=== PATIENT | female | born 1975 | race Caucasian/White ===

== ENCOUNTER 2016-07-14 16:11 | Emergency (ER) | payer OTHER ==
[~2016-07-14] VITALS: Ht 162.6 cm; Wt 84.8 kg
[~2016-07-14 16:11] MED LIST: ARMOUR THYROID PO; CHOL500052 PO; CYM30 PO; PREG75CA PO; PRO40 PO; TOP25 PO
[2016-07-14 16:15] VITALS: BP 129/75; PULSE 68; RESP 19; TEMP 97.3; O2SAT 98
--- NOTE | 2016-07-14 16:15 | NUR ---
Patient triaged and placed in waiting room. VSS and patient appears in no acute distress at this time. Accompanied by SELF , awaiting available bed, and MD notified of need for MSE.
--- NOTE | 2016-07-14 17:26 | NUR ---
BROUGHT BACK TO [facility], REPORT GIVEN TO GIAN
--- NOTE | 2016-07-14 17:26 | NUR ---
Pt report received from GRACIELA Isabel. Pt c/o H/A, photophobia, and nausea intermittently x 1 week, worse today. Pt denies LOC, denies C/P or SOB. Pain at 8/10.
[2016-07-14] MEDS ORDERED: DIPHENHYDRAMINE INJ 50 MG/ML VIAL IVP ONE (17:30)
[2016-07-14] MEDS ORDERED: METOCLOPRAMIDE HCL 10 MG/2 ML VIAL IVP ONE (17:30)
[2016-07-14 17:40] LABS: HEMOGLOBIN 11.4 g/dL (12.0-16.0)
[2016-07-14 17:55] LABS: ALBUMIN 3.6 g/dL (3.4-4.8); BASOPHILS # (AUTO) 0.1 K/uL (0.0-0.2); CALCIUM 9.1 mg/dL (8.4-11.0); CREATININE 1.26 mg/dL (0.55-1.30); EOSINOPHILS # (AUTO) 0.2 K/uL (0.0-0.4); EOSINOPHILS % (AUTO) 1.8 % (0.0-4.0); HEMATOCRIT 33.5 % (36-48); LYMPHOCYTES # (AUTO) 3.5 K/uL (1.0-5.5); LYMPHOCYTES % (AUTO) 32.1 % (20.5-51.5); MEAN CORPUSCULAR HEMOGLOBIN 28 pg (27-31); MEAN CORPUSCULAR HGB CONC 34 % (32-36); MEAN CORPUSCULAR VOLUME 83 fL (79.0-98.0); MONOCYTES # (AUTO) 0.8 K/uL (0.0-1.0); MONOCYTES % (AUTO) 7.7 % (1.7-9.3); NEUTROPHILS # (AUTO) 6.3 K/uL (1.8-7.7); NEUTROPHILS % (AUTO) 57.4 % (40.0-70.0); PLATELET COUNT (AUTO) 213 K/uL (130-430); POTASSIUM 3.6 mmol/L (3.5-5.1); RED BLOOD CELL COUNT(AUTO) 4.02 MIL/uL (4.2-6.2); TOTAL BILIRUBIN 0.2 mg/dL (0.0-1.0); TOTAL PROTEIN, SERUM 7.6 g/dL (6.4-8.3); WHITE BLOOD COUNT (AUTO) 10.9 K/uL (4.8-10.8)
--- NOTE | 2016-07-14 18:30 | NUR ---
Pt resting quietly, even and non-labored respirations. Lights off for pt comfort.
--- NOTE | 2016-07-14 19:07 | NUR ---
Pt report given to GRACIELA Walsh.
--- NOTE | 2016-07-14 19:10 | NUR ---
at bedside evaluating pt
--- NOTE | 2016-07-14 19:17 | NUR ---
pt in bed, stated headache is tolerable at 4/10. No other distress noted
[2016-07-14 19:35] VITALS: BP 124/71; PULSE 66; RESP 18; TEMP 97.3; O2SAT 98
--- NOTE | 2016-07-14 19:35 | NUR ---
Patient given written and verbal discharge instructions and verbalizes understanding. ER MD Barba discussed with patient the results and treatment provided. Patient in stable condition. ID arm band removed. Rx of motrin and norco given. Patient educated on pain management and to follow up with PMD. Pain Scale 0/10 Opportunity for questions provided and answered.
== END 2016-07-14 19:35 | disposition home or self-care (01) ==
LOC: SED 16:11
DX: R51 Headache (principal); H53.149 Visual discomfort, unspecified; E03.9 Hypothyroidism, unspecified
CPT/HCPCS: 36415; 80053; 81025; 85025; 96372; 99284; J1200; J2765

== ENCOUNTER 2018-01-04 00:06 | Emergency (ER) | payer OTHER ==
[~2018-01-04] VITALS: Ht 162.6 cm; Wt 82.6 kg
[2018-01-04 00:18] VITALS: BP_SYST 137
--- NOTE | 2018-01-04 00:48 | NUR ---
Placed in room 02. Placed on monitoring analyst, blood pressure machine and pulse oximeter. To gown for exam. Side rails up. Report given to GRACIELA Peck.
--- NOTE | 2018-01-04 00:50 | NUR ---
Patient AAOx4, ambulatory. Patient states having a main complaint of chronic migraines, with her last episode occurring "a while ago". Patient states having an onset of migraines for 1 day with no relief of headache. Patient states current pain scale of 7/10 at this time with a sharp sensation. Patient states having eye sensitivity to light. Patient denies any vomiting. Patient denies any other complaints.
[2018-01-04] MEDS ORDERED: KETOROLAC TROMETHAMINE 30 MG VIAL IVP ONE (02:00)
[2018-01-04] MEDS ORDERED: DIPHENHYDRAMINE INJ 50 MG/ML VIAL IVP ONE (02:00)
[2018-01-04] MEDS ORDERED: DEXAMETHASONE SOD PHOSPHATE 10 MG/ML VIAL IVP ONE (02:00)
[2018-01-04] MEDS ORDERED: METOCLOPRAMIDE HCL 10 MG/2 ML VIAL IVP ONE (02:00)
--- NOTE | 2018-01-04 02:00 | NUR ---
ER Dr. Carter at bedside examining patient.
--- NOTE | 2018-01-04 02:10 | NUR ---
# 20 gauge angiocath placed to left AC. Use of asceptic technique. Opsite placed over site. Blood return noted. Blood for lab drawn from site. Flushed with 10 cc of normal saline. No evidence of infiltration noted. Patient tolerated well.
[2018-01-04 02:41] LABS: BASOPHILS # (AUTO) 0.2 K/uL (0.0-0.2); BASOPHILS % (AUTO) 1.6 % (0.0-2.0); EOSINOPHILS # (AUTO) 0.2 K/uL (0.0-0.4); EOSINOPHILS % (AUTO) 1.6 % (0.0-4.0); HEMOGLOBIN 14.9 g/dL (12.0-16.0); LYMPHOCYTES # (AUTO) 2.8 K/uL (1.0-5.5); LYMPHOCYTES % (AUTO) 22.7 % (20.5-51.5); MEAN CORPUSCULAR HEMOGLOBIN 32 pg (27-31); MEAN CORPUSCULAR HGB CONC 34 % (32-36); MEAN CORPUSCULAR VOLUME 93 fL (79.0-98.0); MONOCYTES # (AUTO) 0.9 K/uL (0.0-1.0); NEUTROPHILS # (AUTO) 8.2 K/uL (1.8-7.7); NEUTROPHILS % (AUTO) 67.1 % (40.0-70.0); PLATELET COUNT (AUTO) 260 K/uL (130-430); RED BLOOD CELL COUNT(AUTO) 4.72 MIL/uL (4.2-6.2); RED CELL DISTRIBUTION WIDTH 13.3 % (9.0-15.0); WHITE BLOOD COUNT (AUTO) 12.3 K/uL (4.8-10.8)
[2018-01-04 02:42] LABS: BILIRUBIN,URINE NEGATIVE (NEGATIVE); BLOOD, URINE NEGATIVE (NEGATIVE); CLARITY/URINE CLEAR (CLEAR); COLOR,URINE YELLOW (YELLOW); GLUCOSE,URINE NEGATIVE (NEGATIVE); KETONES,URINE NEGATIVE (NEGATIVE); LEUKOCYTE ESTERASE ,URINE NEGATIVE (NEGATIVE); NITRITE, URINE NEGATIVE (NEGATIVE); PH,URINE 5.5 (5.0-8.0); PROTEIN URINE NEGATIVE (NEGATIVE); UROBILINOGEN,URINE 0.2 (0.2-1.0)
--- NOTE | 2018-01-04 02:48 | NUR ---
Patient is calmly resting in ER bed, no signs of distress noted. Vital signs are within therapeutic range.
[2018-01-04 02:55] LABS: CALCIUM 9.6 mg/dL (8.4-11.0); CREATININE 0.91 mg/dL (0.55-1.30); POTASSIUM 3.6 mmol/L (3.5-5.1)
--- NOTE | 2018-01-04 03:33 | NUR ---
Note marilyn in ED - 01/04/18 at 0408 by GRETTA Patient has a 1 cm laceration to right ankle. Dr. Carter applied sutures using sterile technique. Edges well approximated. Site cleansed with betadine and sterile normal saline. Dressing of dry gauze with bacitracin applied to site. No bleeding noted. Pt tolerated well.
[2018-01-04 03:47] LABS: ERYTHROCYTE SEDIMENTATION RATE 12 MM/HR (0-20)
[2018-01-04 03:50] VITALS: BP_SYST 132
--- NOTE | 2018-01-04 03:50 | NUR ---
Patient given written and verbal discharge instructions and verbalizes understanding. ER MD discussed with patient the results and treatment provided. Patient in stable condition. ID arm band removed. IV catheter removed intact and dressing applied, no active bleeding. Rx of reglan given. Patient educated on pain management and to follow up with PMD. Pain Scale 0/10. Opportunity for questions provided and answered.
== END 2018-01-04 03:50 | disposition home or self-care (01) ==
LOC: SED 00:06
DX: G43.909 Migraine, unspecified, not intractable, without status migrainosus (principal); M79.7 Fibromyalgia; E03.9 Hypothyroidism, unspecified; Z79.899 Other long term (current) drug therapy
CPT/HCPCS: 36415; 80048; 81003; 85025; 85651; 96374; 96375; 99284; J1100; J1200; J1885; J2765

== ENCOUNTER 2018-12-01 19:15 | Emergency (ER) | payer OTHER ==
[~2018-12-01] VITALS: Ht 162.6 cm; Wt 81.6 kg
[2018-12-01 19:21] VITALS: BP_SYST 117
--- NOTE | 2018-12-01 20:15 | NUR ---
Patient to ER bed 8 for evaluation.
--- NOTE | 2018-12-01 20:15 | NUR ---
Patient to ER via triage for evaluation of left great toe pain x 3 days, very slight redness noted to side of nail bed, no swelling or drainage noted. Patient denies any known trauma or injury. Patient is awake, alert and oriented in no acute distress, vital signs stable, respirations even and unlabored, skin warm and dry to touch. Patient able to ambulate without difficulty with slow, steady gait to bed 8. Patient in position of comfort. Awaiting evaluation by ER MD, will continue to observe and assess.
--- NOTE | 2018-12-01 20:40 | NUR ---
ER at bedside examining patient.
[2018-12-01] MEDS ORDERED: LIDOCAINE 1% 10 MG/ML, 20 ML MDV INJ ONE (20:45)
[2018-12-01] MEDS ORDERED: KETOROLAC TROMETHAMINE 60 MG/2 ML VIAL IM ONE (20:45)
[2018-12-01] MEDS ORDERED: MORPHINE 4 MG/ML INJ. SYRINGE IM ONE (21:15)
--- NOTE | 2018-12-01 21:30 | NUR ---
Dr Lynn at bedside for partial removal of toe nail. No adverse reaction noted to medication.
[2018-12-01 22:14] VITALS: BP_SYST 116
--- NOTE | 2018-12-01 22:16 | NUR ---
Patient given written and verbal discharge instructions and verbalizes understanding. ER MD discussed with patient the results and treatment provided. Patient in stable condition. ID arm band removed. Rx of Tillman and Keflex given. Patient educated on pain management and to follow up with PMD. Pain Scale 2/10 tolerable for patient. Opportunity for questions provided and answered. Medication side effect fact sheet provided.
== END 2018-12-01 20:15 | disposition home or self-care (01) ==
LOC: SED 19:15
DX: L60.0 Ingrowing nail (principal); L03.032 Cellulitis of left toe; G43.909 Migraine, unspecified, not intractable, without status migrainosus; M79.7 Fibromyalgia; E03.9 Hypothyroidism, unspecified; Z79.899 Other long term (current) drug therapy
CPT/HCPCS: 11730; 96372; 99283; J1885; J2001; J2270

== ENCOUNTER 2018-12-03 14:57 | Emergency (ER) | payer OTHER ==
[~2018-12-03] VITALS: Ht 162.6 cm; Wt 81.6 kg
[2018-12-03 15:18] VITALS: BP_SYST 125
[2018-12-03] MEDS ORDERED: HYDROcodone/ACETAMIN 5-325 MG TAB (NORCO/ VICODIN) PO ONE (15:45)
[2018-12-03 16:43] VITALS: BP_SYST 125
== END 2018-12-03 16:43 | disposition home or self-care (01) ==
LOC: SED 14:57
DX: L60.0 Ingrowing nail (principal); R03.0 Elevated blood-pressure reading, without diagnosis of hypertension; E03.9 Hypothyroidism, unspecified; G43.909 Migraine, unspecified, not intractable, without status migrainosus; M79.7 Fibromyalgia; Z79.899 Other long term (current) drug therapy
CPT/HCPCS: 99281

== ENCOUNTER 2019-01-10 00:23 | Emergency (ER) | payer OTHER ==
[~2019-01-10] VITALS: Ht 162.6 cm; Wt 83.9 kg
[2019-01-10 01:06] VITALS: BP_SYST 98
[2019-01-10 05:02] VITALS: BP_SYST 110
== END 2019-01-10 05:02 | disposition home or self-care (01) ==
LOC: SED 00:23
DX: G43.909 Migraine, unspecified, not intractable, without status migrainosus (principal); E03.9 Hypothyroidism, unspecified; M79.89 Other specified soft tissue disorders
CPT/HCPCS: 99281

== ENCOUNTER 2019-01-30 16:50 | Emergency (ER) | payer OTHER ==
[~2019-01-30] VITALS: Ht 162.6 cm; Wt 81.6 kg
[2019-01-30 16:59] VITALS: BP_SYST 112
[2019-01-30] MEDS ORDERED: KETOROLAC TROMETHAMINE 60 MG/2 ML VIAL IM ONE (17:30)
[2019-01-30 18:22] VITALS: BP_SYST 112
== END 2019-01-30 18:25 | disposition home or self-care (01) ==
LOC: SED 16:50
DX: R07.89 Other chest pain (principal); E03.9 Hypothyroidism, unspecified; F17.210 Nicotine dependence, cigarettes, uncomplicated; Z79.899 Other long term (current) drug therapy
CPT/HCPCS: 81002; 93005; 96372; 99283; J1885

== ENCOUNTER 2021-04-01 08:33 | Emergency (ER) | payer OTHER ==
[~2021-04-01] VITALS: Ht 162.6 cm; Wt 81.6 kg
[2021-04-01 08:35] VITALS: BP_SYST 98
--- NOTE | 2021-04-01 08:35 | NUR ---
BROUGHT BACK TO BED #6 AND TRIAGED. REPORT GIVEN TO YUMI
--- NOTE | 2021-04-01 08:57 | NUR ---
ER at bedside examining patient.
--- NOTE | 2021-04-01 09:12 | NUR ---
PT NOTED TO BE IN ROOM 6, REPORTS GENERALIZED ABDOMINAL PAIN SINCE THIS AM WITH "SWELLING" STATES IT'S "GASTRITIS" AND HAS HAD IT BEFORE. PT DENIES ANY SOB OR CP. MILD NAUSEA/NO VOMITTING. NO FEVERS. RESP EVEN AND UNLABORED, ON RA @99%.
--- NOTE | 2021-04-01 09:29 | NUR ---
PT INSTRUCTED TO PROVIDE URINE SAMPLE DELON.
[2021-04-01 09:39] LABS: BASOPHILS # (AUTO) 0.1 K/uL (0.0-0.2); BASOPHILS % (AUTO) 0.9 % (0.0-2.0); EOSINOPHILS # (AUTO) 0.1 K/uL (0.0-0.4); EOSINOPHILS % (AUTO) 1.3 % (0.0-4.0); HEMOGLOBIN 14.5 g/dL (12.0-16.0); LYMPHOCYTES # (AUTO) 3.6 K/uL (1.0-5.5); LYMPHOCYTES % (AUTO) 32.4 % (20.5-51.5); MEAN CORPUSCULAR HEMOGLOBIN 30 pg (27-31); MEAN CORPUSCULAR HGB CONC 33 % (32-36); MEAN CORPUSCULAR VOLUME 92 fL (79.0-98.0); MONOCYTES # (AUTO) 0.8 K/uL (0.0-1.0); MONOCYTES % (AUTO) 7.1 % (1.7-9.3); NEUTROPHILS # (AUTO) 6.4 K/uL (1.8-7.7); NEUTROPHILS % (AUTO) 58.3 % (40.0-70.0); PLATELET COUNT (AUTO) 253 K/uL (130-430); RED BLOOD CELL COUNT(AUTO) 4.77 MIL/uL (4.2-6.2); WHITE BLOOD COUNT (AUTO) 11.1 K/uL (4.8-10.8)
[2021-04-01 09:43] LABS: ANION GAP 7 (5-15); CALCIUM 8.5 mg/dL (8.4-11.0); CHLORIDE 102 mmol/L (98-107); CREATININE 1.24 mg/dL (0.55-1.30); GFR AFRICAN AMERICAN 60 mL/min (>90); GLUCOSE 93 mg/dL (70-99); POTASSIUM 4.4 mmol/L (3.5-5.1); SODIUM SERUM 137 mmol/L (136-145); UREA NITROGEN, BLOOD 9 mg/dL (8-21)
[2021-04-01 09:47] LABS: ALANINE AMINOTRANSFERASE 30 U/L (12-78); ALBUMIN 3.9 g/dL (3.4-4.8); AMYLASE 58 U/L (0-100); ASPARTATE AMINOTRANSFERASE 20 U/L (10-37); INR 0.9 (0.8-1.2); LIPASE 123 U/L (73-393); PROTHROMBIN TIME 9.3 SECS (9.5-12.5); TOTAL BILIRUBIN 0.4 mg/dL (0.0-1.0)
[2021-04-01 09:49] LABS: C-REACTIVE PROTEIN QUANT < 0.2 mg/dL (0-0.5)
--- NOTE | 2021-04-01 10:34 | NUR ---
PT UP TO BATHROOM.
[2021-04-01] MEDS ORDERED: HYDR-3917 PO (10:42)
[2021-04-01] MEDS ORDERED: IBUP-1969 PO (10:42)
--- NOTE | 2021-04-01 11:29 | NUR ---
DR THOMAS IN ROOM FOR DISPOSITION.
[2021-04-01 11:36] LABS: BILIRUBIN,URINE NEGATIVE (NEGATIVE); CLARITY/URINE CLEAR (CLEAR); COLOR,URINE YELLOW (YELLOW); GLUCOSE,URINE NEGATIVE (NEGATIVE); KETONES,URINE NEGATIVE (NEGATIVE); LEUKOCYTE ESTERASE ,URINE NEGATIVE (NEGATIVE); NITRITE, URINE POSITIVE (NEGATIVE); PROTEIN URINE NEGATIVE (NEGATIVE); UROBILINOGEN,URINE 0.2 (0.2-1.0)
[2021-04-01 11:40] LABS: BLOOD, URINE TRACE (NEGATIVE)
[2021-04-01 11:55] LABS: BACTERIA,URINE MANY /HPF (None Seen); MUCUS,URINE 1+ /LPF (None Seen)
[2021-04-01 12:00] VITALS: BP_SYST 102
--- NOTE | 2021-04-01 12:00 | NUR ---
Patient given written and verbal discharge instructions and verbalizes understanding. ER MD discussed with patient the results and treatment provided. Patient in stable condition. Rx of NORCO, IBUPROFEN given. Patient educated on pain management and to follow up with PMD. Pain Scale . Opportunity for questions provided and answered. Medication side effect fact sheet provided.
== END 2021-04-01 12:00 | disposition home or self-care (01) ==
LOC: SED 08:33
DX: K80.50 Calculus of bile duct without cholangitis or cholecystitis without obstruction (principal); E03.9 Hypothyroidism, unspecified; Z79.899 Other long term (current) drug therapy
CPT/HCPCS: 36415; 76376; 80053; 81000; 82150; 83605; 83690; 84484; 84703; 85025; 85610-TC; 85730-TC; 86140; 87086; 99284